=== PATIENT | male | born 1940 | race Caucasian/White ===

== ENCOUNTER → 2022-10-08 09:48 | Outpatient (BNVA) | payer MEDICARE, SELFPAY | PROVIDERS: Family Provider Urology; PCP Urology; Visit Provider Family Medicine | DX: F32.A Depression, unspecified (principal); J45.909 Unspecified asthma, uncomplicated; R41.3 Other amnesia; R45.0 Nervousness; R53.83 Other fatigue | CPT/HCPCS: 80053; 82607; 84443; 85025 ==

== ENCOUNTER → 2023-09-04 11:06 | Outpatient (BNVA) | payer MEDICARE, SELFPAY | PROVIDERS: Family Provider Urology; PCP Family Medicine; Visit Provider Family Medicine | DX: R45.0 Nervousness (principal); J45.909 Unspecified asthma, uncomplicated; R53.83 Other fatigue; E03.9 Hypothyroidism, unspecified; Z13.6 Encounter for screening for cardiovascular disorders | CPT/HCPCS: 80053; 80061; 82607; 84443; 85025 ==

== ENCOUNTER → 2024-02-24 09:25 | Outpatient (BNVA) | payer MEDICARE, SELFPAY | PROVIDERS: Family Provider Urology; PCP Family Medicine; Visit Provider Family Medicine | DX: K92.1 Melena (principal); E03.9 Hypothyroidism, unspecified; N39.0 Urinary tract infection, site not specified; R45.0 Nervousness; F32.A Depression, unspecified; R41.3 Other amnesia; R53.83 Other fatigue | CPT/HCPCS: 74018; 80053; 81000; 82607; 84443 ==